=== PATIENT | male | born 1980 | race Caucasian/White ===

== ENCOUNTER 2017-09-23 08:07 | Emergency (ER) | payer BC ==
[~2017-09-23] VITALS: Ht 177.8 cm; Wt 102.1 kg
[2017-09-23 08:25] VITALS: BP 163/97
[2017-09-23] MEDS ORDERED: KETOROLAC TROMETH 60MG/2ML VIAL IM ONE (08:30)
[2017-09-23] MEDS ORDERED: CARISOPRODOL 350 MG TAB PO ONE (08:30)
[2017-09-23] MEDS ORDERED: methylPREDNISolone SOD SUCC 125 MG/2 ML VL IM ONE (10:15)
== END 2017-09-23 10:36 | disposition home or self-care (01) ==
LOC: ER 08:10
DX: S46.912A Strain of unspecified muscle, fascia and tendon at shoulder and upper arm level, left arm, initial encounter (principal); M75.102 Unspecified rotator cuff tear or rupture of left shoulder, not specified as traumatic; X58.XXXA Exposure to other specified factors, initial encounter; Y93.89 Activity, other specified; Y99.8 Other external cause status; Y92.89 Other specified places as the place of occurrence of the external cause
CPT/HCPCS: 72040; 72070; 73030; 96372; 99284; J1885; J2930

== ENCOUNTER 2017-09-25 07:58 | Emergency (ER) | payer BC ==
[~2017-09-25] VITALS: Ht 177.8 cm; Wt 102.1 kg
[2017-09-25 08:15] VITALS: BP 143/94
[2017-09-25] MEDS ORDERED: KETOROLAC TROMETH 60MG/2ML VIAL IM ONE (08:15)
[2017-09-25] MEDS ORDERED: methylPREDNISolone SOD SUCC 125 MG/2 ML VL IM ONE (09:30)
== END 2017-09-25 10:50 | disposition home or self-care (01) ==
LOC: ER 07:58
DX: M50.20 Other cervical disc displacement, unspecified cervical region (principal)
CPT/HCPCS: 72141; 73221; 96372; 99284; J1885; J2930